=== PATIENT | female | born 1960 | race Caucasian/White ===

== ENCOUNTER 2018-02-10 20:10 | Emergency (ER) | payer OTHER ==
[~2018-02-10] VITALS: Ht 167.6 cm; Wt 64.0 kg
[~2018-02-10 20:10] MED LIST: ALPR.25 PO; PERC5TAB12 PO; PHEN12.5 PO; PHEN37.5 PO; SOMA350T PO
[2018-02-10 20:58] VITALS: BP 151/100; PULSE 90; RESP 18; TEMP 98.6; O2SAT 98
[2018-02-10] MEDS ORDERED: IBUP-232 PO (21:26)
[2018-02-10] MEDS ORDERED: TRAM50TA PO (21:26)
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
[2018-02-10] MEDS ORDERED: ACETAMINOPHEN/HYDROcodone 325 MG/5 MG TAB PO ONE (21:30)
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
== END 2018-02-10 23:10 | disposition home or self-care (01) ==
LOC: PHEFT 20:10
DX: S80.02XA Contusion of left knee, initial encounter (principal); S80.01XA Contusion of right knee, initial encounter; M25.562 Pain in left knee; M25.561 Pain in right knee; M19.90 Unspecified osteoarthritis, unspecified site; J45.909 Unspecified asthma, uncomplicated; F41.9 Anxiety disorder, unspecified; G89.29 Other chronic pain; M54.9 Dorsalgia, unspecified; V49.59XA Passenger injured in collision with other motor vehicles in traffic accident, initial encounter; Z88.5 Allergy status to narcotic agent
CPT/HCPCS: 73564; 99283

== ENCOUNTER 2018-03-08 02:26 | Emergency (ER) | payer SELFPAY ==
[~2018-03-08] VITALS: Ht 167.6 cm; Wt 82.6 kg
[~2018-03-08 02:26] MED LIST changes: -ALPR.25 PO; +IBUP-232 PO; -PERC5TAB12 PO; -PHEN12.5 PO; -PHEN37.5 PO; -SOMA350T PO; +TRAM50TA PO
[2018-03-08 02:35] VITALS: BP 202/104; PULSE 80; RESP 20; TEMP 98.3; O2SAT 98
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
[2018-03-08] MEDS ORDERED: SODIUM CHLOR 0.9% 1000 ML INJ 1,000 ML IV SCH (02:41)
[2018-03-08] MEDS ORDERED: ONDANSETRON HCL 4 MG/2 ML VIAL IVP ONE (02:45)
[2018-03-08] MEDS ORDERED: KETOROLAC TROMETHAMINE 30 MG/ML (IVP) VIAL IV PUSH ONE ×2 (02:45→03:45)
[2018-03-08] MEDS ORDERED: SODIUM CHLORIDE 0.9% FLUSH 10 ML FLUSH IV FLUSH PRN (02:45)
[2018-03-08] MEDS ORDERED: MORPHINE SULFATE 4 MG/ML INJ IV PUSH ONE (02:45)
[2018-03-08 03:02] LABS: BILIRUBIN, URINE NEG (NEG); BLOOD, URINE SMALL (NEG); GLUCOSE,URINE NEG (NEG); KETONE, URINE NEG (NEG); NITRITE,URINE NEG (NEG); PH, URINE 6.5 (5.0-8.5); URINE COLOR YELLOW (YELLW/STRAW); URINE LEUKOCYTE ESTERASE NEG (NEG)
[2018-03-08 03:04] LABS: AUTOMATED NEUTROPHIL # 15.9 TH/MM3 (1.8-7.7); BASOPHIL # 0.1 TH/MM3 (0-0.2); BASOPHIL % 0.7 % (0.0-2.0); EOSINOPHIL % 0.1 % (0.0-4.0); HEMOGLOBIN 14.3 GM/DL (11.6-15.3); LYMPHOCYTE # 0.7 TH/MM3 (1.0-4.8); MEAN CELL VOLUME 87.3 FL (80.0-100.0); MEAN CORPUSCULAR HEMOGLOBIN 28.4 PG (27.0-34.0); MEAN CORPUSCULAR HGB CONC 32.6 % (32.0-36.0); MEAN PLATELET VOLUME 9.5 FL (7.0-11.0); MONO % 2.1 % (0.0-8.0); MONOCYTE # 0.4 TH/MM3 (0-0.9); NEUT % 93.1 % (16.0-70.0); PLATELET COUNT 321 TH/MM3 (150-450); RED BLOOD COUNT 5.04 MIL/MM3 (4.00-5.30); RED CELL DISTRIBUTION WIDTH 13.8 % (11.6-17.2); WHITE BLOOD COUNT 17.1 TH/MM3 (4.0-11.0)
[2018-03-08 03:09] LABS: SQUAMOUS EPITHELIAL CELL URINE 0-5 /hpf (0-5); WBC, URINE 0-2 /hpf (0-5)
[2018-03-08 03:11] LABS: CHLORIDE 106 MEQ/L (98-107); SODIUM (NA) 138 MEQ/L (136-145)
[2018-03-08 03:15] LABS: ALBUMIN 4.3 GM/DL (3.4-5.0); BICARBONATE 24.3 MEQ/L (21.0-32.0); BLOOD UREA NITROGEN 19 MG/DL (7-18); GLUCOSE,RANDOM 139 MG/DL (74-106); PROTHROMBIN TIME - PATIENT 9.9 SEC (9.8-11.6)
[2018-03-08 03:17] LABS: ALT (GPT) 30 U/L (10-53); AST (GOT) 14 U/L (15-37)
[2018-03-08 03:18] LABS: CREATININE 0.91 MG/DL (0.50-1.00); GLOMERULAR FILTRATION RATE 64 ML/MIN (>89)
[2018-03-08 03:19] LABS: TOTAL BILIRUBIN ADULT 0.3 MG/DL (0.2-1.0); TOTAL PROTEIN 8.4 GM/DL (6.4-8.2)
[2018-03-08 03:20] LABS: ALKALINE PHOSPHATASE 110 U/L (45-117)
[2018-03-08 03:27] VITALS: BP 141/84; PULSE 89; O2SAT 99
--- NOTE | 2018-03-08 03:33 | RADRPT ---
EXAM DATE/TIME: 03/08/2018 03:09 [facility] COMPARISON: No previous studies available for comparison. INDICATIONS : Right flank pain. Nausea. Vomiting. ORAL CONTRAST: No oral contrast ingested. RADIATION DOSE: 16.99 CTDIvol (mGy) MEDICAL HISTORY : Carcinoma, not otherwise specified. SURGICAL HISTORY : Appendectomy. Hysterectomy. ENCOUNTER: Initial ACUITY: 1 day PAIN SCALE: 10/10 LOCATION: Right flank TECHNIQUE: Volumetric scanning of the abdomen and pelvis was performed. Using automated exposure control and ad justment of the mA and/or kV according to patient size, radiation dose was kept as low as reasonably achievable to obtain optimal diagnostic quality images. DICOM format image data is available electro nically for review and comparison. FINDINGS: LOWER LUNGS: The visualized lower lungs are clear. LIVER: Homogeneous density without lesion. There is no dilation of the biliary tree. Multiple gallstones th e largest showing rim calcification measuring 1.4 cm in diameter SPLEEN: Normal size without lesion. Isolated, punctate granulomas are atrophic calcification PANCREAS: Within normal limits. KIDNEYS: Left kidney and ureter are sonographically normal. Right kidney is enlarged with perinephric strandin g and hydronephrosis. A number of small, 2-3 mm stones are seen in the collecting system. There is hy droureter but I do not see a ureteric or bladder stone. ADRENAL GLANDS: Within normal limits. VASCULAR: There is no aortic aneurysm. BOWEL/MESENTERY: The stomach, small bowel, and colon demonstrate no acute abnormality. There is no free intraperitone al air or fluid. ABDOMINAL WALL: Within normal limits. RETROPERITONEUM: There is no lymphadenopathy. BLADDER: There appears to be punctate dot of air in the nondependent portion of the urinary bladder. No stones or mural thickening. REPRODUCTIVE: Within normal limits. INGUINAL: There is no lymphadenopathy or hernia. MUSCULOSKELETAL: Degenerative hypertrophy of the articulating facets at the lumbosacral junction. Otherwise intact. CONCLUSION: 1. Enlargement of the right kidney with perinephric stranding, hydronephrosis and hydroureter with mu ltiple small 2-3 mm stones in the collecting system. I do not see a ureteric or bladder stone, howeve r. Stone may have recently passed. 2. Cholelithiasis. Largest stones or calcified measured 1.4 cm in diameter. 3. Punctate dot of air in the nondependent portion of the urinary bladder. Has there been recent inst rumentation? 4. Facet hypertrophy at the lumbosacral junction. Miguelito Clayton MD on March 08, 2018 at 3:25 Board Certified Radiologist. This report was verified electronically.
[2018-03-08] MEDS ORDERED: ZOFR4TAB3 SL (03:41)
[2018-03-08] MEDS ORDERED: CIPR-9 PO (03:41)
[2018-03-08] MEDS ORDERED: KETO10 PO (03:41)
[2018-03-08] MEDS ORDERED: cefTRIAXone INJ 2,000 MG in SODIUM CHLORIDE 0.9% INJ 100 ML IV ONE (03:45)
[2018-03-08 04:48] VITALS: BP 130/72
== END 2018-03-08 04:55 | disposition home or self-care (01) ==
LOC: PHED 02:26
DX: N20.1 Calculus of ureter (principal); N12 Tubulo-interstitial nephritis, not specified as acute or chronic; K80.20 Calculus of gallbladder without cholecystitis without obstruction; D72.829 Elevated white blood cell count, unspecified; M19.90 Unspecified osteoarthritis, unspecified site; J45.909 Unspecified asthma, uncomplicated; F41.9 Anxiety disorder, unspecified; Z86.69 Personal history of other diseases of the nervous system and sense organs; Z88.5 Allergy status to narcotic agent
CPT/HCPCS: 74176; 80053; 81001; 83690; 85025; 85610; 85730; 96361; 96365; 96375; 96376; 99284; J0696; J1885; J2270; J2405; J7030